=== PATIENT | female | born 1935 | race Caucasian/White ===

== ENCOUNTER 2019-10-10 21:43 | Inpatient (IN) | payer MEDICARE, BC ==
[~2019-10-10] VITALS: Ht 149.9 cm; Wt 85.4 kg
[~2019-10-10 21:43] MED LIST: ASPI-967 PO; ATOR20TA PO; GABA-585 PO; LEVO25TA55 PO; METF10007 PO; POTA20IV IV; QUIN40TA16 PO; [UNRECOGNIZED DRUG - CODE] IJ
[2019-10-10] MEDS ORDERED: IV NORMAL SALINE 1,000ML 1,000 ML IV ONE ×2 (22:00→22:30)
--- NOTE | 2019-10-10 22:16 | PHYS DOC ---
Adult General Chief Complaint Chief Complaint: WEAKNESS/GENERALIZED HPI HPI 84-year-old female presents with weakness. She was brought here by EMS. Her caregiver called because she was trying to walk the patient and the patient was too weak, slumped to the floor as the caregiver caught her. She did not fall or injure herself. Patient does not remember why she is here. The history about her weakness comes from EMS. The patient denies cough, fever, chills, nausea, vomiting, chest pain, shortness of breath, diarrhea. She does have a little fever 100.6 in the ED. Review of Systems Review of Systems Constitutional: A very[] Eyes: Denies change in visual acuity, redness, or eye pain [] HENT: Denies nasal congestion or sore throat [] Respiratory: Denies cough or shortness of breath [] Cardiovascular: No additional information not addressed in HPI [] GI: Denies abdominal pain, nausea, vomiting, bloody stools or diarrhea [] : Denies dysuria or hematuria [] Musculoskeletal: Chronic back and neck pain[] Integument: Denies rash or skin lesions [] Neurologic: Denies headache, focal weakness or sensory changes [] Endocrine: Denies polyuria or polydipsia [] All other systems were reviewed and found to be within normal limits, except as documented in this note. Current Medications Current Medications Current Medications Medications (Trade) Dose Ordered Sig/Parveen Start Time Stop Time Status Last Admin Dose Admin Sodium Chloride 1,000 ml @ 1,000 mls/hr 1X ONCE 10/10/19 22:30 10/10/19 23:29 Allergies Allergies Allergies Coded Allergies Type Severity Reaction Last Updated Verified adhesive tape Allergy Intermediate 10/10/19 Yes iodine Allergy Mild Itching on face 06/29/15 Yes Physical Exam Physical Exam Constitutional: Well developed, obese, well nourished, no acute distress, non- toxic appearance. [] HENT: Normocephalic, atraumatic, bilateral external ears normal, oropharynx moist, no oral exudates, nose normal. [] Eyes: PERRLA, EOMI, conjunctiva normal, no discharge. [] Neck: Normal range of motion, no tenderness, supple, no stridor. [] Cardiovascular: Heart rate 116, regular rhythm, no murmur [] Lungs & Thorax: Bilateral breath sounds clear to auscultation [] Abdomen: Bowel sounds normal, soft, no tenderness, no masses, no pulsatile masses. [] Skin: Warm, dry, no erythema, no rash. [] Back: No tenderness, no CVA tenderness. [] Extremities: No tenderness, no cyanosis, no clubbing, ROM intact, no edema. [] Neurologic: Alert and oriented X 3, normal motor function, normal sensory function, no focal deficits noted. [] Psychologic: Affect normal, judgement normal, mood normal. [] EKG EKG Sinus tachycardia, rate 116, normal axis, no ST elevations or depressions.[] Radiology/Procedures Radiology/Procedures [] Impressions: AP chest. HISTORY: Weakness AP view was taken of the chest. Lungs are free of infiltrates. Heart is normal in size without heart failure. There is no effusion. There is arthritis in both shoulders. IMPRESSION: 1. No acute infiltrates. Electronically signed by: Quinton Chapman MD (10/10/2019 10:58 PM) [facility] DICTATED AND SIGNED BY: QUINTON CHAPMAN MD DATE: 10/10/192257 CC: FRED PETTIT DO; ARMIN CRUZ MD ~ Course & Med Decision Making Course & Med Decision Making Pertinent Labs and Imaging studies reviewed. (See chart for details) The patient's labs are still can for a white count of 19. Her chest x-ray is negative. Her urinalysis is negative for infection. She has some skin sores, but none of them appear to be cellulitic. I do not have an explanation for her white count. I have no previous for comparison. I have ordered blood cultures and Rocephin. She does not have a fever. The patient continues to have a heart rate around 100. I will admit her to the hospital for further management. I spoke with Dr. Brandt and he has accepted patient for admission. [] Dragon Disclaimer Dragon Disclaimer This electronic medical record was generated, in whole or in part, using a voice recognition dictation system. Departure Departure: Impression: Primary Impression: Leukocytosis, unspecified Additional Impression: Weakness Disposition: ADMITTED INPATIENT Admitting Physician: Summer Brandt Condition: STABLE Referrals: ARMIN CRUZ MD (PCP) Problem Qualifiers FRED PETTIT DO Oct 10, 2019 22:16
[2019-10-10 22:25] LABS: BASO # 0.2 x10^3/uL (0.0-0.2); BASO % 1 % (0-3); EOS % 0 % (0-3); HEMATOCRIT 36.8 % (36.0-47.0); HEMOGLOBIN 11.9 g/dL (12.0-15.5); LYMPH # 1.2 x10^3/uL (1.0-4.8); LYMPH % 6 % (24-48); MEAN CORPUSCULAR HEMOGLOBIN 26 pg (25-35); MEAN CORPUSCULAR HGB CONC 32 g/dL (31-37); MEAN CORPUSCULAR VOLUME 80 fL (79-100); MONO # 1.8 x10^3/uL (0.0-1.1); MONO % 9 % (0-9); NEUT # 16.1 x10^3uL (1.8-7.7); NEUT % 84 % (31-73); PLATELET COUNT 315 x10^3/uL (140-400); RED BLOOD COUNT 4.62 x10^6/uL (3.50-5.40); RED CELL DISTRIBUTION WIDTH 17.6 % (11.5-14.5); WHITE BLOOD COUNT 19.2 x10^3/uL (4.0-11.0)
[2019-10-10 22:31] LABS: AMORPHOUS SEDIMENT,UR PRESENT /HPF; BACTERIA,URINE 0 /HPF (0-FEW); BILIRUBIN,URINE NEG (NEG); CLARITY,URINE CLEAR; COLOR,URINE YELLOW; GLUCOSE,URINE NEG (NEG); NITRITE,URINE NEG (NEG); RBC,URINE OCC /HPF (0-2); SQUAMOUS EPITHELIAL CELL,UR FEW /LPF; UROBILINOGEN,URINE 0.2 mg/dL (0.2 mg/dL)
[2019-10-10 22:34] LABS: CALCIUM 8.3 mg/dL (8.5-10.1); CREATININE 0.7 mg/dL (0.6-1.0); GFR 79.7; POTASSIUM 3.5 mmol/L (3.5-5.1)
[2019-10-10 22:41] LABS: % BANDS 1 % (0-9); % EOS 1 % (0-5); % LYMPHS 6 % (24-48); % MONOS 7 % (0-10); % SEGS 85 % (35-66)
[2019-10-10 22:42] LABS: ANISOCYTOSIS MOD; PLT ESTIMATE ADEQUATE (ADEQUATE); TOXIC GRANULATION PRESENT
[2019-10-10 22:46] LABS: ALBUMIN/GLOBULIN RATIO 0.7 (1.0-1.7); TOTAL BILIRUBIN 0.8 mg/dL (0.2-1.0); TOTAL PROTEIN 7.4 g/dL (6.4-8.2)
--- NOTE | 2019-10-10 23:01 | RAD ---
AP chest. HISTORY: Weakness AP view was taken of the chest. Lungs are free of infiltrates. Heart is normal in size without heart failure. There is no effusion. There is arthritis in both shoulders. IMPRESSION: 1. No acute infiltrates. Electronically signed by: Quinton Chapman MD (10/10/2019 10:58 PM) [facility]
[2019-10-11 01:06] LABS: INFLUENZA A PATIENT NEGATIVE (NEGATIVE); INFLUENZA B PATIENT NEGATIVE (NEGATIVE)
[2019-10-11] MEDS ORDERED: ONDANSETRON PF 4 MG/2 ML VIAL. IV PRN (01:15)
[2019-10-11] MEDS ORDERED: IV NORMAL SALINE 50ML 50 ML ONE (01:26)
[2019-10-11] MEDS ORDERED: cefTRIAXone SODIUM 1 GM VIAL ONE (01:26)
[2019-10-11] MEDS ORDERED: CALC0.2530 PO (02:14)
[2019-10-11] MEDS ORDERED: POTA8TAB PO (02:19)
[2019-10-11] MEDS ORDERED: SITA100T PO (02:21)
[2019-10-11] MEDS ORDERED: OMEG1CAP2 PO (02:21)
[2019-10-11] MEDS ORDERED: LEVO100T PO (02:23)
[2019-10-11] MEDS ORDERED: HYDR-2163 PO (02:28)
--- NOTE | 2019-10-11 02:30 | NUR ---
The patient, MARCUS HANNAH, 84 y/o, F admitted by PAUL MITCHELL MD, to room 120, was given written information regarding hospital policies, unit procedures and contact persons. Valuables were checked and left with the pt. Medications and medical history reviewed. Physical and social needs assessed. Will continue to monitor.
[2019-10-11 02:44] VITALS: BP 169/90
[2019-10-11 06:10] VITALS: BP 165/80
[2019-10-11] MEDS ORDERED: FLU VAX QS 2019-20 (36MOS+)/PF 0.5 ML SYRINGE. VAX IM ONE (09:00)
[2019-10-11] MEDS: LEVOTHYROXINE 100 MCG TABLET PO SCH (10:42)
[2019-10-11] MEDS: LISINOPRIL 20 MG TABLET PO SCH (10:42)
[2019-10-11 11:19] VITALS: BP 156/73
[2019-10-11] MEDS ORDERED: DEXTROSE 50% 25 GM / 50ML DISP.SYRIN. IV PRN (12:00)
--- NOTE | 2019-10-11 12:17 | HP ---
ADMIT DATE: 10/10/2019 HISTORY OF PRESENT ILLNESS: The patient is an 84-year-old female patient, who was brought to the Emergency Room with a complaint of generalized weakness. She was brought by EMS. Her caregiver called because she was trying to walk. The patient was too weak and slumped to the floor as the caregiver caught her. She does not fall or injure herself. The patient does not remember why she is here. The patient denied any cough, fever, chills, nausea, vomiting. When she arrived to the Emergency Room, she has a low-grade fever about 100.6 Fahrenheit. She was extensively investigated and apart from leukocytosis the white cell count was 19,200. All her lab works seemed to be unremarkable. Her lactic acid was only 1.5. Urinalysis was essentially unremarkable. Her influenza A and B were negative and her chest x-ray showed that the lungs are free of infiltrate, heart is normal in size without heart failure. There is no effusion. There is arthritis in both shoulders. She was admitted for further evaluation and treatment. PAST MEDICAL HISTORY: Significant for type 2 diabetes mellitus, hyperlipidemia, hypertension, hypothyroidism, generalized osteoarthritis. PAST SURGICAL HISTORY: Significant for 2 , total abdominal hysterectomy, bilateral salpingo-oophorectomy, cholecystectomy, appendectomy, thyroidectomy and parathyroidectomy. She has left total knee arthroplasty as well as colonoscopy and colon resection for diverticulitis and hernia repair. FAMILY HISTORY: Significant for cancer, diabetes and heart disease. SOCIAL HISTORY: She is . She has 2 sons. She never smoked, does not drink alcohol or use any recreational drugs. She worked as an editorial assistant in a doctor's office. ALLERGIES: She is allergic to TAPE AND IODINE. MEDICATIONS: She is currently on following medications: She is on atorvastatin calcium 20 mg at bedtime, omega-3 fatty acid for Lovaza 1 gram 3 times a day, quinapril 40 mg once a day, hydrocodone/APAP 5/325 one tablet 4 times a day, potassium chloride 8 mEq 3 times a day, metformin 1000 mg twice a day, sitagliptin phosphate for Januvia 100 mg 1 tablet once a day. She is on levothyroxine for Synthroid 100 mcg once a day and calcitriol 0.25 mcg once a day. REVIEW OF SYSTEMS: The patient denied any blurring of vision, cataract, glaucoma or macular degeneration. Denied any earache, tinnitus or sensorineural deafness. Denied any nosebleeds, stuffy nose or postnasal drip. Denied any sore throat, sore tongue, toothache, hoarseness of voice or difficulty swallowing. Denied any nausea, vomiting, diarrhea or constipation. Denied any hematemesis, melena or hematochezia. Denied any dysuria, frequency or hematuria. Denied any chest pain, shortness of breath, orthopnea, paroxysmal nocturnal dyspnea. Denied any cough, phlegm or hemoptysis. Denied any dizziness, lightheadedness, or vertigo. PHYSICAL EXAMINATION: GENERAL: On arrival to the Emergency Room, the patient looked somewhat pale, but no jaundice, cyanosis or thyromegaly. No jugular venous distention. No limb edema. VITAL SIGNS: Her heart rate on arrival was 114, blood pressure was 150/95, temperature was 100.6, respiratory rate was 18 and oxygen saturation was 91% on room air. HEAD, EYES, EARS, NOSE AND THROAT: Showed normocephalic, atraumatic. NECK: Supple. HEART: Showed normal first and second heart sounds. No gallop or murmur. CHEST: Clear to auscultation. No crepitation or rhonchi. ABDOMEN: Markedly distended, soft, nontender. NEUROLOGIC: She was awake, alert, responding appropriately. All her cranial nerves are intact. EXTREMITIES: She moves extremities without difficulty. She apparently ambulates with a walker. LABORATORY DATA: Showed a white cell count of 19,200, hemoglobin 11.9, hematocrit 36, MCV 80 and platelet count 315,000 with normal manual differential, showed 84% polymorphs, 6% lymphocytes, 9% monocytes. Her chemistry showed a serum sodium 135, potassium 3.5, chloride 96, bicarbonate 26, anion gap of 14, BUN 13, creatinine 0.7, estimated GFR was 80 mL per minute. Her glucose was 203, calcium was 8.3. Her total bilirubin, AST, ALT, alkaline phosphatase were normal. Total protein was 7.4, albumin 3. Her lactic acid was only 1.5. Urinalysis was essentially unremarkable. The urine was yellow, clear with a pH of 5.5, specific gravity of 1.030. There was large amount of protein, negative for glucose, small amount of ketones, trace of blood, negative for nitrite and leukocyte esterase. Her influenza A and B were negative. SUMMARY: This is an 84-year-old female patient who was admitted with generalized weakness and fall. Other than marked leukocytosis, her lungs are clear. Her urinalysis was unremarkable. PLAN: My plan is to obviously check her thyroid function and CK as well as sed rate and C-reactive protein. We will decide the further management accordingly. PAUL MITCHELL MD DR: ELMA/luis JOB#: [id number] / [id number]
[2019-10-11] MEDS: ATORVASTATIN CALCIUM 20 MG TABLET PO SCH (12:30)
[2019-10-11] MEDS: POTASSIUM CHLORIDE 10 MEQ TABLET.ER. PO SCH ×2 (13:06→21:17)
[2019-10-11] MEDS: CALCITRIOL 0.25 MCG CAPSULE PO SCH (13:06)
[2019-10-11] MEDS: LINAGLIPTIN 5 MG TABLET PO SCH (13:07)
[2019-10-11] MEDS: OMEGA-3 FATTY ACIDS/FISH OIL 1,000 MG CAPSULE. PO SCH ×2 (13:07→21:17)
[2019-10-11] MEDS: INSULIN LISPRO 300 UNITS/3 ML VIAL. SQ SCH ×2 (13:15→17:00)
[2019-10-11 13:39] LABS: C REACTIVE PROTEIN 164.6 mg/L (0-3.3)
[2019-10-11] MEDS: HYDROcodone/APAP 5/325MG 1 TAB TABLET PO PRN (15:35)
[2019-10-11 15:59] VITALS: BP 172/73
[2019-10-11] MEDS: metFORMIN 500 MG TABLET PO SCH (17:00)
[2019-10-11] MEDS ORDERED: BARIUM SULFATE 2.1% 450 ML SUSP PO ONE ×2 (17:45)
--- NOTE | 2019-10-11 18:49 | RAD ---
Exam: CT abdomen and pelvis without contrast INDICATION: Abdominal pain TECHNIQUE: Sequential axial images through the abdomen and pelvis obtained without IV contrast. Sagittal and coronal reformatted images were reconstructed from the axial data and reviewed. Comparisons: None FINDINGS: Heart size is normal. No pericardial effusion. Visualized lung bases are clear. No pleural effusion. Evaluation of the solid organs is limited secondary to noncontrast technique. Liver, spleen, pancreas and adrenals are unremarkable. Gallbladder surgically absent. No perinephric inflammation or hydronephrosis. No renal or ureteral calculi are identified. Bladder is distended and appears thin-walled. Uterus is absent. No abnormal adnexal mass. There is diverticulosis noted throughout the descending and sigmoid colon. There is wall thickening involving the sigmoid colon with adjacent inflammatory changes. No free fluid or fluid collection identified. Abdominal aorta has a normal course and caliber. No enlarged intra-abdominal lymph nodes are identified. No suspicious osseous lesions or acute fracture. IMPRESSION: Findings of simple diverticulitis involving the sigmoid colon. No evidence for perforation. Exposure: One or more of the following in the visualized dose reduction techniques were utilized for this examination: 1. Automated exposure control 2. Adjustment of the MA and/or KV according to patient size 3. Use of iterative of reconstructive technique Electronically signed by: Allison Valerio MD (10/11/2019 6:46 PM) [facility]
[2019-10-11 21:20] VITALS: BP 183/81
[2019-10-12 00:12] VITALS: BP 142/98
[2019-10-12] MEDS: LEVOTHYROXINE 100 MCG TABLET PO SCH (05:28)
[2019-10-12 05:57] VITALS: BP 187/93
[2019-10-12 06:45] LABS: BASO % 0 % (0-3); EOS # 0.1 x10^3/uL (0.0-0.7); EOS % 1 % (0-3); HEMATOCRIT 33.3 % (36.0-47.0); HEMOGLOBIN 10.5 g/dL (12.0-15.5); LYMPH # 1.5 x10^3/uL (1.0-4.8); LYMPH % 15 % (24-48); MEAN CORPUSCULAR HEMOGLOBIN 26 pg (25-35); MEAN CORPUSCULAR HGB CONC 31 g/dL (31-37); MEAN CORPUSCULAR VOLUME 81 fL (79-100); MONO % 10 % (0-9); NEUT % 73 % (31-73); PLATELET COUNT 261 x10^3/uL (140-400); RED BLOOD COUNT 4.11 x10^6/uL (3.50-5.40); RED CELL DISTRIBUTION WIDTH 17.7 % (11.5-14.5); WHITE BLOOD COUNT 9.6 x10^3/uL (4.0-11.0)
[2019-10-12 06:59] LABS: ALBUMIN 2.5 g/dL (3.4-5.0); ALBUMIN/GLOBULIN RATIO 0.6 (1.0-1.7); CALCIUM 7.5 mg/dL (8.5-10.1); CREATININE 0.6 mg/dL (0.6-1.0); GFR 95.2; POTASSIUM 3.3 mmol/L (3.5-5.1); TOTAL BILIRUBIN 0.5 mg/dL (0.2-1.0); TOTAL PROTEIN 6.5 g/dL (6.4-8.2)
[2019-10-12] MEDS: INSULIN LISPRO 300 UNITS/3 ML VIAL. SQ SCH ×3 (08:04→17:19)
[2019-10-12] MEDS: LISINOPRIL 20 MG TABLET PO SCH (08:10)
[2019-10-12] MEDS: LINAGLIPTIN 5 MG TABLET PO SCH (08:10)
[2019-10-12] MEDS: OMEGA-3 FATTY ACIDS/FISH OIL 1,000 MG CAPSULE. PO SCH ×3 (08:10→21:32)
[2019-10-12] MEDS: ATORVASTATIN CALCIUM 20 MG TABLET PO SCH (08:10)
[2019-10-12] MEDS: metFORMIN 500 MG TABLET PO SCH ×2 (08:11→17:17)
[2019-10-12] MEDS: CALCITRIOL 0.25 MCG CAPSULE PO SCH (08:11)
[2019-10-12] MEDS: POTASSIUM CHLORIDE 10 MEQ TABLET.ER. PO SCH ×2 (08:11→14:52)
[2019-10-12] MEDS ORDERED: NON FORMULARY ITEM (Sitagliptin Phosphate (Januvia) 1 TAB) PO SCH (09:00)
[2019-10-12 10:51] VITALS: BP 154/75
[2019-10-12 14:45] VITALS: BP 172/76
[2019-10-12] MEDS: POTASSIUM CHLORIDE 20 MEQ TABLET.ER. PO SCH (17:00)
[2019-10-12] MEDS ORDERED: amLODIPine BESYLATE 5 MG TABLET PO ONE (17:15)
[2019-10-12 19:44] VITALS: BP 170/76
[2019-10-12] MEDS ORDERED: POTASSIUM CHLORIDE 20 MEQ TABLET.ER. PO ONE (21:00)
[2019-10-12] MEDS: HYDROcodone/APAP 5/325MG 1 TAB TABLET PO PRN (21:33)
[2019-10-12 22:36] VITALS: BP 159/75
--- NOTE | 2019-10-13 02:03 | PN ---
DATE: SUBJECTIVE: The patient is sitting at the edge of the bed comfortably, in no apparent distress. She continued to complain of back pain, neck pain and also abdominal pain. We did a CT scan of the abdomen and pelvis without contrast as SHE IS ALLERGIC TO THE IODINE and she was found to have diverticulosis noted throughout the descending and sigmoid colon, there is wall thickening involving the sigmoid colon with adjacent inflammatory changes. No free fluid or fluid collection identified. The bladder is distended, appears thin walled. Uterus absent. No abnormal adnexal masses. No evidence of perinephric inflammation or hydronephrosis. No renal or ureteral calculi identified. The liver, spleen, pancreas, adrenals unremarkable. Gallbladder surgically absent. Her abdominal aorta is normal in course and caliber. No enlarged intraabdominal lymph node identified. No suspicious osseous lesion or acute fracture identified. The impression is the patient has similar diverticulitis involving the sigmoid colon. No evidence of perforation. The patient was already started empirically on ceftriaxone yesterday and I will add Flagyl. Also, given her severe back pain and cervical spine, I have arranged for her to have a total body bone scan and we will monitor her labs closely and decide on further management accordingly. PHYSICAL EXAMINATION: GENERAL: When I saw her today, she looked well and was clearly in no apparent respiratory distress, slightly pale, but no jaundice, cyanosis or thyromegaly. No jugular venous distention. No lower limb edema. VITAL SIGNS: Her heart rate was 83, blood pressure was 154/75, temperature was 98.5, respiratory rate 20 and oxygen saturation was 97%. HEAD, EYES, EARS, NOSE AND THROAT: Showed normocephalic, atraumatic. NECK: Supple. HEART: Showed normal first and second heart sounds. No gallop or murmur. CHEST: Clear to auscultation. No crepitation or rhonchi. ABDOMEN: Distended, soft, nontender. NEUROLOGIC: She is awake, alert, responding appropriately. All cranial nerves intact. She moves extremities without difficulty. She ambulates with a walker with standby assist. Her intake was 2100, no output was recorded. LABORATORY DATA: Her lab work this morning showed a white cell count 9600, hemoglobin 10.5, hematocrit 33, MCV 81 and platelet count 261,000 with normal manual differential. Her chemistry showed a serum sodium 140, potassium 3.3, chloride 102, bicarbonate 31, anion gap of 7, BUN 7, creatinine 0.6, estimated GFR was 95 mL per minute. Her glucose 176, calcium was 7.5. Total bilirubin, AST, ALT, alkaline phosphatase were normal. Total protein 6.5, albumin was 2.5. Urinalysis was unremarkable. Her C-reactive protein was extremely high at 164 mg/dL and sed rate was 34 mm per hour. ASSESSMENT: Generalized weakness and fall, marked leukocytosis. They transpired due to acute diverticulitis. She has multiple other medical problems including type 2 diabetes mellitus, hyperlipidemia, hyperthyroidism, hypertension and generalized osteoarthritis. PLAN: My plan is to add Flagyl 500 mg IV 3 times a day together to continue with Rocephin. Her white cell count is already down from 19,000 to 9000. I will arrange also for her to have total body bone scan and we will decide on further management accordingly. PAUL MITCHELL MD DR: ELMA/luis JOB#: [id number] / [id number]
[2019-10-13 04:56] VITALS: BP 169/71
[2019-10-13] MEDS: LEVOTHYROXINE 100 MCG TABLET PO SCH (04:57)
[2019-10-13] MEDS: LISINOPRIL 20 MG TABLET PO SCH (04:58)
[2019-10-13 06:18] LABS: HEMATOCRIT 31.4 % (36.0-47.0); HEMOGLOBIN 9.9 g/dL (12.0-15.5); RED BLOOD COUNT 3.87 x10^6/uL (3.50-5.40); RED CELL DISTRIBUTION WIDTH 17.3 % (11.5-14.5); WHITE BLOOD COUNT 9.4 x10^3/uL (4.0-11.0)
[2019-10-13 06:28] LABS: CALCIUM 7.3 mg/dL (8.5-10.1); CREATININE 0.6 mg/dL (0.6-1.0); GFR 95.2; POTASSIUM 3.6 mmol/L (3.5-5.1)
[2019-10-13 06:34] VITALS: BP 162/84
[2019-10-13] MEDS: INSULIN LISPRO 300 UNITS/3 ML VIAL. SQ SCH ×2 (08:00→13:16)
[2019-10-13] MEDS: ATORVASTATIN CALCIUM 20 MG TABLET PO SCH (08:34)
[2019-10-13] MEDS: metFORMIN 500 MG TABLET PO SCH (08:34)
[2019-10-13] MEDS: OMEGA-3 FATTY ACIDS/FISH OIL 1,000 MG CAPSULE. PO SCH ×2 (08:34→15:04)
[2019-10-13] MEDS: POTASSIUM CHLORIDE 20 MEQ TABLET.ER. PO SCH (08:35)
[2019-10-13] MEDS: LINAGLIPTIN 5 MG TABLET PO SCH (08:36)
[2019-10-13] MEDS: CALCITRIOL 0.25 MCG CAPSULE PO SCH (08:36)
[2019-10-13] MEDS ORDERED: LACTOBACILLUS RHAMNOSUS GG 1 CAPSULE. PO SCH (09:00)
[2019-10-13] MEDS ORDERED: amLODIPine BESYLATE 5 MG TABLET PO SCH (09:00)
[2019-10-13 10:29] VITALS: BP 180/86
[2019-10-13 15:30] VITALS: BP 181/75
[2019-10-13] MEDS ORDERED: amLODIPine BESYLATE 5 MG TABLET PO ONE (16:00)
[2019-10-13] MEDS ORDERED: CEFD300C PO (16:13)
[2019-10-13] MEDS ORDERED: METR-111 PO (16:14)
--- NOTE | 2019-10-13 16:16 | DISCH ---
HOME HEALTH DISCHARGE/MEDS DISCHARGE INFORMATION: Discharge Date: Oct 13, 2019 Final Diagnosis: Problems Medical Problems: (1) Leukocytosis, unspecified Status: Acute (2) Weakness Status: Acute Diverticulitis Condition on Discharge: Stable CODE STATUS: Code Status: Full HOME HEALTH: Face to Face: I certify this patient is under my care and that I, or a nurse practitioner or physician's junior sales assistant working with me, had a face to face encounter that meets the physician face to face encounter requirements with this patient on 10/13/19 Medical Condition(s): Other Snf For: Admin/Educate Injections Physical Therapy For: Evalulation/Treatment Occupational Therapy For: Evaluation/Treatment Homebound Status Met By: Unsteady balance w/ amb, POST DISCHARGE ORDERS: Activity Instructions for Disc: Resume previous activity DIET AFTER DISCHARGE: Regular CERTIFICATION STATEMENT: Certification Statement: Based on the above finding, I certify that this patient is confined to the home and needs intermittent group home care, physical therapy and/or speech therapy, or continues to need occupational therapy.~ This patient is under my care, and I have initiated the establishment of the plan of care.~ This patient will be followed by myself or a community physician who will periodically review the plan of care. DISCHARGE MEDICATIONS: Home Meds Active Scripts Metronidazole (METRONIDAZOLE) 250 Mg Tablet, 1 TAB PO TID for diverticulitis for 7 Days, #21 TAB Prov:PAUL MITCHELL MD 10/13/19 Cefdinir (CEFDINIR) 300 Mg Capsule, 1 CAP PO BID for divertculitis for 7 Days, #14 CAP Prov:PAUL MITCHELL MD 10/13/19 Reported Medications Hydrocodone Bit/Acetaminophen (HYDROCODONE-APAP 5-300) 1 Each Tablet, 1 TAB PO QID PRN for pain MDD 2 Tablet(s) for 30 Days, #60 TAB 0 Refills 1/2 to 1 tablet QID PRN 10/11/19 Levothyroxine Sodium (SYNTHROID) 100 Mcg Tablet, 1 TAB PO DAILY for thyroid, #30 TAB 5 Refills 10/11/19 Sitagliptin Phosphate (JANUVIA) 100 Mg Tablet, 1 TAB PO DAILY for diabetes, #30 TAB 5 Refills 10/11/19 Sawyer-3 Acid Ethyl Esters (LOVAZA) 1 Gm Capsule, 1 GM PO TID for supplement, CAP 1/19/20 Potassium Chloride (KLOR-CON 8) 8 Meq Tablet.er, 1 TAB PO TID for replacement f or 30 Days, #90 TAB 0 Refills 10/11/19 Calcitriol (CALCITRIOL) 0.25 Mcg Capsule, 1 CAP PO DAILY for replacement, #30 CAP 5 Refills 10/11/19 Atorvastatin Calcium (LIPITOR) 20 Mg Tablet, 1 TAB PO DAILY, #90 TAB 1 Refill 06/29/15 Metformin Hcl (METFORMIN HCL) 1,000 Mg Tablet, 1 TAB PO BID, #60 TAB 5 Refills 06/29/15 Quinapril Hcl (QUINAPRIL HCL) 40 Mg Tablet, 1 TAB PO DAILY, #30 TAB 5 Refills 06/29/15 PAUL MITCHELL MD Oct 13, 2019 16:16
--- NOTE | 2019-10-13 16:17 | RAD ---
Examination: BONE SCAN WHOLE BODY History: Back pain Comparison/Correlation: 10/11/2019 CT abdomen and pelvis with oral contrast: 2020 which is eccentric Findings: 25 mCi technetium 99m MDP was administered intravenously for purposes of whole body bone scintigraphy. Uptake of radiotracer involving the distal right upper HMD which may relate to injection site is noted. Uptake involving the right glenohumeral and acromioclavicular joints noted. This may relate to degenerative change. Kidneys and urinary bladder are visualized. Uptake of radiotracer involving the lower thoracic and lower lumbar spine noted corresponding to degenerative changes on recent CT exam. Levoconvex scoliosis of the lumbar spine. Uptake of radiotracer involving the knees greater on the right noted likely representing degenerative change. Tracer involving the midfoot and hindfoot bilaterally may relate to degenerative change. Impression: Uptake of radiotracer along the spine is mild compatible degenerative change. Other foci of uptake corresponding to degenerative changes also are seen. Electronically signed by: Austin Ko MD (10/13/2019 4:14 PM) [facility]
[2019-10-13 16:49] VITALS: BP 181/75
--- NOTE | 2019-10-13 17:36 | NUR ---
Discharge Note: MARCUS HANNAH [address] Discharge instructions and discharge home medications reviewed with Patient and a copy given. All questions have been answered and understanding verbalized. The following instructions and handouts were given: Take medications as prescribed, follow up with primary care provider in 7-10 days or sooner if needed. Discontinued lines and drains: discontinued peripheral IV, pressure dressing applied, catheter tip intact, no apparant complications Patient discharged to home with home health.
[2019-10-14] MEDS ORDERED: amLODIPine BESYLATE 10 MG TABLET PO SCH (09:00)
--- NOTE | 2019-10-14 14:05 | DS ---
DATE OF DISCHARGE: 10/13/2019 HOSPITAL COURSE: The patient is an 84-year-old female patient, who was brought to the Emergency Room with complaint of generalized weakness. She was extensively investigated at the Emergency Room and apart from markedly elevated white cell count of 19,200, all other lab works and imaging studies were unremarkable. In fact, her lactic acid was only 1.5. Urinalysis was essentially unremarkable. Her influenza A and B were negative. Chest x-ray showed that the lungs are free of infiltrate. The patient was started empirically on IV Rocephin and she complained also of constipation, abdominal pain. We did a CT scan of the abdomen and pelvis, which showed that the patient has findings of simple diverticulitis involving the sigmoid colon. No evidence of perforation, so we added Flagyl. She also continued to have aches and pains all over and as her sed rate and C-reactive protein are high, I did a whole body bone scan, which basically showed that the uptake radiotracer along the spine is mild compatible with degenerative changes. Other foci of uptake corresponding to degenerative changes are also seen. As the patient remained hemodynamically stable, afebrile, her white cell count came down from 19,000 to 9000. A decision was made to discharge her home to continue treatment with oral antibiotic in the form of cefdinir as well as Flagyl. PHYSICAL EXAMINATION: GENERAL: Prior to discharge when I saw her, she was sitting at the edge of the bed comfortably in no apparent distress. She was slightly pale, but no jaundice, cyanosis or thyromegaly. No jugular venous distension. No lower limb edema. VITAL SIGNS: Her heart rate was 81, blood pressure was 160/70, temperature was 98, respiratory rate was 20, and oxygen saturation was 98%. HEAD, EYES, EARS, NOSE AND THROAT: Showed normocephalic, atraumatic. NECK: Supple. HEART: Showed normal first and second heart sounds. No gallop, rub or murmur. CHEST: Clear to auscultation. No crepitation or rhonchi. ABDOMEN: Distended, soft, nontender. NEUROLOGIC: She is awake, alert, responding appropriately. All cranial nerves intact. EXTREMITIES: She moves extremities without difficulty. LABORATORY DATA: Showed a serum sodium 138, potassium 3.6, chloride 102, bicarbonate 28, anion gap of 8, BUN 8, creatinine 0.6, estimated GFR was 95 mL per minute. Her glucose 156, calcium was 7.3. Her white cell count was 9400, hemoglobin 10, hematocrit 30, MCV 81 and platelet count 291,000. Her influenza A and B were negative. Urinalysis was unremarkable. Her blood culture continues to be negative at the time of this dictation. DISCHARGE MEDICATIONS: She was discharged home to continue on following medications: Cefdinir 300 mg twice a day for 7 days, Flagyl 250 mg 3 times a day for 7 days. Should continue all other medication including atorvastatin calcium 20 mg daily, calcitriol 0.25 mcg capsule 1 capsule daily, hydrocodone/APAP 5/325 one tablet 4 times a day, levothyroxine sodium, Synthroid 100 mcg tablet once a day, metformin 1000 mg twice a day, omega-3 fatty acid, Lovaza 1 gram 3 times a day, potassium chloride for Klor-Con 8 mEq 3 times a day, quinapril 40 mg once a day, sitagliptin phosphate for Januvia 100 mg daily. FINAL DISCHARGE DIAGNOSES: 1. Acute diverticulitis. 2. The patient has multiple other medical problems including: A. Type 2 diabetes mellitus. B. Hyperlipidemia. C. Hypothyroidism. D. Hypertension. E. Generalized osteoarthritis. PAUL MITCHELL MD DR: ELMA/luis JOB#: [id number] / [id number]
== END 2019-10-13 17:38 | disposition home health service (06) | DRG 391 ==
LOC: ER 21:43 → 1 SOUTH 23:40
PROVIDERS: ADMIT Internal Medicine; ATTEND Internal Medicine
DX: K57.32 Diverticulitis of large intestine without perforation or abscess without bleeding (principal); E43 Unspecified severe protein-calorie malnutrition; E11.9 Type 2 diabetes mellitus without complications; E78.5 Hyperlipidemia, unspecified; I10 Essential (primary) hypertension; M19.011 Primary osteoarthritis, right shoulder; M19.012 Primary osteoarthritis, left shoulder; Z96.652 Presence of left artificial knee joint; W18.30XA Fall on same level, unspecified, initial encounter; E03.9 Hypothyroidism, unspecified; Z83.3 Family history of diabetes mellitus; Z90.49 Acquired absence of other specified parts of digestive tract; Z90.710 Acquired absence of both cervix and uterus; Z90.722 Acquired absence of ovaries, bilateral; Z82.49 Family history of ischemic heart disease and other diseases of the circulatory system; Z80.9 Family history of malignant neoplasm, unspecified; Z91.041 Radiographic dye allergy status; Z79.84 Long term (current) use of oral hypoglycemic drugs; Z79.899 Other long term (current) drug therapy; Z68.38 Body mass index [BMI] 38.0-38.9, adult; Y93.89 Activity, other specified; Y92.89 Other specified places as the place of occurrence of the external cause; Y99.8 Other external cause status
CPT/HCPCS: 36415; 71045; 74176; 78306; 80048; 80053; 81001; 82550; 82947; 83605; 83880; 84443; 84484; 85007; 85025; 85027; 85651; 86140; 87040; 87804; 90471; 90686; 93005; 96361; 96365; A9503; J0696; J1815; J3490; P9612; 99285-25; J7030

== ENCOUNTER 2021-07-19 10:54 | Emergency (ER) | payer MEDICARE, BC ==
[~2021-07-19] VITALS: Ht 149.9 cm; Wt 89.3 kg
[~2021-07-19 10:54] MED LIST changes: +CALC0.2530 PO; +CEFD300C PO; +HYDR-3068 PO; +LEVO100T PO; +METR-111 PO; +OMEG1CAP2 PO; +POTA8TAB57 PO; +SITA100T PO
--- NOTE | 2021-07-19 11:25 | PHYS DOC ---
Past History Past Medical History: Diverticulitis, Diabetes, Hypertension, Hypothyroid, Other Additional Past Medical Histor: BACKPAIN Past Surgical History: Appendectomy, Cholecystectomy, Hysterectomy, Knee Replacement, Other Additional Past Surgical Histo: THYROIDECTOMY, BOWEL RESECTION Alcohol Use: None Drug Use: None General Adult EDM: Chief Complaint: WEAKNESS/GENERALIZED HPI: HPI: 86-year-old female presents from her care facility via EMS with increased weakness and altered mental status. The facility reports that the patient is less responsive than normal. No focal deficits noted. She has been especially sleepy. The patient does not express any specific complaints or pain to me. Review of Systems: Review of Systems: Constitutional: Denies fever or chills. Weakness. Eyes: Denies change in visual acuity HENT: Denies nasal congestion or sore throat Respiratory: Denies cough or shortness of breath Cardiovascular: Denies chest pain or edema GI: Denies abdominal pain, nausea, vomiting, bloody stools or diarrhea : Denies dysuria Musculoskeletal: Denies back pain or joint pain Integument: Denies rash Neurologic: Denies headache, focal weakness or sensory changes Endocrine: Denies polyuria or polydipsia Lymphatic: Denies swollen glands Psychiatric: Denies depression or anxiety Allergies: Allergies: Allergies Coded Allergies Type Severity Reaction Last Updated Verified adhesive tape Allergy Intermediate 10/10/19 Yes iodine Allergy Mild Itching on face 06/29/15 Yes Physical Exam: PE: Constitutional: Well developed, well nourished, morbidly obese, no acute distress, non-toxic appearance. [] HENT: Normocephalic, atraumatic, bilateral external ears normal, oropharynx moist, no oral exudates, nose normal. [] Eyes: PERRLA, EOMI, conjunctiva normal, no discharge. [] Neck: Normal range of motion, no tenderness, supple, no stridor. [] Cardiovascular: Heart rate 101, regular rhythm, no murmur [] Lungs & Thorax: Bilateral breath sounds clear to auscultation [] Abdomen: Bowel sounds normal, soft, no tenderness, no masses, no pulsatile masses. [] Skin: Warm, dry, no erythema, no rash. [] Back: No tenderness, no CVA tenderness. [] Extremities: No tenderness, no cyanosis, no clubbing, ROM intact, no edema. [] Neurologic: Alert and oriented X 3, normal motor function, normal sensory function, no focal deficits noted. [] Psychologic: Affect flat, mood sleepy. [] Current Patient Data: Vital Signs: Vital Signs Date Time Temp Pulse Resp B/P (MAP) Pulse Ox O2 Delivery O2 Flow Rate FiO2 07/19/21 11:04 99.5 84 18 139/52 (81) 95 Nasal Cannula 2.0 EKG: EKG: Sinus rhythm, rate 101, leftward axis, no ST elevation or depression, prolonged ND interval. [] Radiology/Procedures: Radiology/Procedures: [] Impressions: EXAM: Head CT without contrast. HISTORY: Altered mental status. TECHNIQUE: Computed tomographic images of the head were obtained without contrast. *One or more of the following individualized dose reduction techniques were utilized for this examination: 1. Automated exposure control. 2. Adjustment of the mA and/or kV according to patient size. 3. Use of iterative reconstruction technique. COMPARISON: None. FINDINGS: There is no acute or subacute extra-axial or intraparenchymal hemorrhage. There is no mass effect or midline shift. There is no hydrocephalus. There are areas of decreased attenuation within the cerebral white matter, nonspecific and likely related to chronic small vessel disease. There is cerebral atrophy. There are suspected chronic lacunar infarction involving the basal ganglia and thalami. There is also a suspected chronic infarct involving the right cerebellum. There is an incidental cava septum pellucidum. There is evidence of lens surgery. There is a tiny right maxillary sinus mucous tension cyst. The mastoid air cells are clear. There is no suspicious calvarial lesion. IMPRESSION: 1. No acute intracranial finding. Note is made that MRI is more sensitive for acute infarction. 2. Extensive bilateral cerebral white matter changes, likely due to chronic small vessel disease in a patient of this age. 3. Cerebral atrophy. 4. Suspected chronic lacunar infarcts involving the basal ganglia and thalami and chronic infarct involving the right cerebellum. Electronically signed by: Jessika Muller MD (07/19/2021 11:48 AM) [id number] DICTATED AND SIGNED BY: JESSIKA MULLER MD DATE: 07/19/21 1146 CC: FRED PETTIT DO; ARMIN CRUZ MD ~MTH0 0 EXAM: Chest, single view. HISTORY: Weakness. COMPARISON: 10/10/2019 FINDINGS: Frontal views of the chest are obtained. There is mild diffuse increased interstitial opacity likely due to atelectasis and relative decreased lung volumes. There is no consolidation, pleural effusion or pneumothorax. There is a stable cardiac silhouette. There is incidental superior migration of the right humeral head due to a chronic rotator cuff tear. IMPRESSION: Mild diffuse interstitial prominence likely due to atelectasis and relative decreased lung volumes. No consolidated infiltrate. Electronically signed by: Jessika Muller MD (07/19/2021 11:50 AM) [id number] DICTATED AND SIGNED BY: JESSIKA MULLER MD DATE: 07/19/21 1149 CC: FRED PETTIT DO; ARMIN CRUZ MD ~MTH0 0 Heart Score: C/O Chest Pain: N/A Risk Factors: Risk Factors: DM, Current or recent (<one month) smoker, HTN, HLP, family history of CAD, obesity. Risk Scores: Score 0 - 3: 2.5% MACE over next 6 weeks - Discharge Home Score 4 - 6: 20.3% MACE over next 6 weeks - Admit for Clinical Observation Score 7 - 10: 72.7% MACE over next 6 weeks - Early Invasive Strategies Course & Med Decision Making: Course & Med Decision Making Pertinent Labs and Imaging studies reviewed. (See chart for details) The patient's head CT is negative for acute findings. There are chronic findings including infarcts. She official read for more details. Chest x-ray shows atelectasis, but no other significant findings. The patient's hemoglobin is 9, but her review of her chart shows that this is near her baseline. She has other mildly abnormal labs. See labs for more details. They are likely noncontributory. Urinalysis is negative for infection. I do not see any medical reason to keep the patient in the hospital versus returning to her care facility. She is stable for discharge at this time. [] Dragon Disclaimer: Dragon Disclaimer: This electronic medical record was generated, in whole or in part, using a voice recognition dictation system. Departure Departure: Impression: Primary Impression: Weakness Disposition: 01 HOME / SELF CARE / HOMELESS Condition: STABLE Referrals: ARMIN CRUZ MD (PCP) Patient Instructions: Weakness, [id number] FRED PETTIT DO Jul 19, 2021 11:25
[2021-07-19 11:35] LABS: BASO % 0 % (0-3); EOS % 0 % (0-3); HEMATOCRIT 28.4 % (36.0-47.0); LYMPH # 1.2 x10^3/uL (1.0-4.8); LYMPH % 12 % (24-48); MEAN CORPUSCULAR HEMOGLOBIN 22 pg (25-35); MEAN CORPUSCULAR HGB CONC 32 g/dL (31-37); MEAN CORPUSCULAR VOLUME 70 fL (79-100); MONO % 10 % (0-9); NEUT # 7.8 x10^3uL (1.8-7.7); NEUT % 77 % (31-73); PLATELET COUNT 359 x10^3/uL (140-400); RED BLOOD COUNT 4.04 x10^6/uL (3.50-5.40); RED CELL DISTRIBUTION WIDTH 21.4 % (11.5-14.5); WHITE BLOOD COUNT 10.1 x10^3/uL (4.0-11.0)
[2021-07-19 11:46] LABS: CALCIUM 7.4 mg/dL (8.5-10.1); CREATININE 0.7 mg/dL (0.6-1.0); GFR 79.3; POTASSIUM 3.1 mmol/L (3.5-5.1)
--- NOTE | 2021-07-19 11:50 | RAD ---
EXAM: Head CT without contrast. HISTORY: Altered mental status. TECHNIQUE: Computed tomographic images of the head were obtained without contrast. *One or more of the following individualized dose reduction techniques were utilized for this examina tion: 1. Automated exposure control. 2. Adjustment of the mA and/or kV according to patient size. 3. Use of iterative reconstruction technique. COMPARISON: None. FINDINGS: There is no acute or subacute extra-axial or intraparenchymal hemorrhage. There is no mass effect or midline shift. There is no hydrocephalus. There are areas of decreased attenuation within the cerebral white matter, nonspecific and likely rel ated to chronic small vessel disease. There is cerebral atrophy. There are suspected chronic lacunar infarction involving the basal ganglia and thalami. There is also a suspected chronic infarct involvi ng the right cerebellum. There is an incidental cava septum pellucidum. There is evidence of lens surgery. There is a tiny rig ht maxillary sinus mucous tension cyst. The mastoid air cells are clear. There is no suspicious walter rial lesion. IMPRESSION: 1. No acute intracranial finding. Note is made that MRI is more sensitive for acute infarction. 2. Extensive bilateral cerebral white matter changes, likely due to chronic small vessel disease in a patient of this age. 3. Cerebral atrophy. 4. Suspected chronic lacunar infarcts involving the basal ganglia and thalami and chronic infarct inv olving the right cerebellum. Electronically signed by: Jessika Muller MD (07/19/2021 11:48 AM) [id number]
--- NOTE | 2021-07-19 11:52 | RAD ---
EXAM: Chest, single view. HISTORY: Weakness. COMPARISON: 10/10/2019 FINDINGS: Frontal views of the chest are obtained. There is mild diffuse increased interstitial opaci ty likely due to atelectasis and relative decreased lung volumes. There is no consolidation, pleural effusion or pneumothorax. There is a stable cardiac silhouette. There is incidental superior migratio n of the right humeral head due to a chronic rotator cuff tear. IMPRESSION: Mild diffuse interstitial prominence likely due to atelectasis and relative decreased annemarie g volumes. No consolidated infiltrate. Electronically signed by: Jessika Muller MD (07/19/2021 11:50 AM) [id number]
[2021-07-19 11:53] LABS: ALBUMIN 2.4 g/dL (3.4-5.0); ALBUMIN/GLOBULIN RATIO 0.7 (1.0-1.7); TOTAL BILIRUBIN 0.4 mg/dL (0.2-1.0); TOTAL PROTEIN 5.8 g/dL (6.4-8.2)
[2021-07-19 12:29] LABS: ANISOCYTOSIS SLIGHT; HYPOCHROMIA SLIGHT; MICROCYTOSIS SLIGHT; PLT ESTIMATE ADEQUATE (ADEQUATE)
--- NOTE | 2021-07-19 13:18 | EKG ---
[address] [address] Test Date: 2021-07-19 Test Time: 11:17:46 Pat Name: MARCUS HANNAH Department: Room: Gender: F [employer]: BINTA : [id number] Requested By: FRED PETTIT Order Number: [id number] Reading MD: Mike Contreras Measurements Intervals [place] Rate: 101 P: -46 NV: 254 QRS: -28 QRSD: 88 T: 71 QT: 330 QTc: 434 Interpretive Statements SINUS TACHYCARDIA PROLONGED NV INTERVAL LEFTWARD AXIS ST & T ABNORMALITY, CONSIDER HIGH LATERAL ISCHEMIA OR LEFT VENTRICULAR STRAIN ABNORMAL ECG Electronically Signed On 07-19-2021 15:54:15 CDT by Mike Contreras
[2021-07-19 13:51] LABS: BILIRUBIN,URINE NEG (NEG); CLARITY,URINE CLEAR; COLOR,URINE YELLOW; GLUCOSE,URINE NEG (NEG); NITRITE,URINE NEG (NEG); UROBILINOGEN,URINE 0.2 mg/dL (0.2 mg/dL)
[2021-07-19 13:52] LABS: BACTERIA,URINE 0 /HPF (0-FEW); RBC,URINE 0 /HPF (0-2); SQUAMOUS EPITHELIAL CELL,UR FEW /LPF
[2021-07-19 16:06] VITALS: BP 122/85
== END 2021-07-19 16:39 | disposition home or self-care (01) ==
LOC: ER 10:54
DX: R53.1 Weakness (principal); R41.82 Altered mental status, unspecified; E11.9 Type 2 diabetes mellitus without complications; I10 Essential (primary) hypertension; E03.9 Hypothyroidism, unspecified; Z88.8 Allergy status to other drugs, medicaments and biological substances
CPT/HCPCS: 36415; 70450; 71045; 80053; 81001; 83605; 84484; 85025; 87040; 87086; 93005; 99285; P9612